=== PATIENT | female | born 1995 | race Caucasian/White ===

== ENCOUNTER 2018-01-03 13:04 | Emergency (ER) | payer BC, SELFPAY ==
[2018-01-03 13:05] VITALS: BP 118/63; PULSE 55; RESP 16; TEMP 35.7; O2SAT 98; BMI 21.9
--- NOTE | 2018-01-03 13:36 | CT_ITS ---
STUDY: CT CERVICAL SPINE WITHOUT CONTRAST REASON FOR EXAM: Female, 22 years old. FALL-HIT BACK OF HEAD/POS LOC RADIATION DOSAGE (If Supplied By Facility): CTDIvol = ( 18.82 ) mGy, DLP = ( 357.35 ) mGycm TECHNIQUE: High resolution transaxial imaging was performed without contrast material. Sagittal and coronal images were reconstructed. Individualized dose optimization techniques were used for this CT. COMPARISON: None FINDINGS: Normal craniovertebral junction. Normal anterior atlantoaxial articulation. Normal odontoid process. Normal cervical lordosis. Normal vertebral bodies and posterior osseous elements. C2-3: Normal endplates. Normal disc height and morphology. Normal central canal and intervertebral neuroforamina. C3-4: Normal endplates. Normal disc height and morphology. Normal central canal and intervertebral neuroforamina. C4-5: Normal endplates. Normal disc height and morphology. Normal central canal and intervertebral neuroforamina. C5-6: Normal endplates. Normal disc height and morphology. Normal central canal and intervertebral neuroforamina. C6-7: Normal endplates. Normal disc height and morphology. Normal central canal and intervertebral neuroforamina. C7-T1: Normal endplates. Normal disc height and morphology. Normal central canal and intervertebral neuroforamina. Normal visualized soft tissue structures. CT/Spine Cervical without Contras IMPRESSION: Normal unenhanced CT examination of the cervical spine. Electronically Signed: Chip Carter MD at 14:36 EDT Tel , Service support ,
--- NOTE | 2018-01-03 13:36 | CT_ITS ---
STUDY: CT BRAIN WITHOUT CONTRAST REASON FOR EXAM: Female, 22 years old. FALL/POS LOC. HIT BACK OF HEAD-PT SHIELDED. RADIATION DOSAGE (If Supplied By Facility): CTDIvol = ( 60.81 ) mGy, DLP = ( 1021.47 ) mGycm TECHNIQUE: Transaxial CT imaging of the brain was performed without administration of intravenous contrast material. Individualized dose optimization techniques were used for this CT. COMPARISON: None. FINDINGS: Normal soft tissue structures. Normal calvarium. Normal size ventricles and extra-axial spaces for the patient's age. Normal white matter tracts of the cerebral hemispheres. Normal basal ganglia and thalami. Normal brainstem. Normal cerebellum. There is no intracranial hemorrhage. There are no findings of an acute ischemic infarction. Normal visualized paranasal sinuses. CT/Brain/Head without Contrast IMPRESSION: Normal unenhanced CT scan of the brain. Electronically Signed: Chip Carter MD at 14:09 EDT Tel , Service support ,
--- NOTE | 2018-01-03 14:55 | ED.DCSUM_ITS ---
- ER Visit Summary Date of Service: 01/03/18 Chief Complaint: Fall History of Present Illness: The patient is a 22 F that slipped when ice- skating. She hit the back of her head. Brief LOC. Nausea. Reports posterior head pain and neck pain. No weakness or numbness. No blood thinner use. Physical Examination: Head and neck are atraumatic on inspection. HEENT exam unremarkable. Cranial nerves normal. Cervical spine diffusely tender to palpation. No focal or lateralizing neurologic abdomen is grossly. Test Results: CT head and neck unremarkable. Emergency Department Course and Treatment: Patient treated with Motrin. I suspect she has a concussion. She was given concussion information and will be discharged. Treatment Plan: As above Disposition: Discharged Impression: 1. Concussion with loss of consciousness This note was generated with [employer] dictation software. It may contain incorrect words, spelling, and punctuation that were not noted in review of the chart prior to signing ED Disposition - Plan for ED Patient: Chief Complaint: Head Injury Referrals: Rich Thomas MD [Primary Care Provider] -
--- NOTE | 2018-01-03 14:55 | ED.DEP ---
ED Disposition - Plan for ED Patient: Chief Complaint: Head Injury Instructions: ED Concussion Referrals: Rich Thomas MD [Primary Care Provider] -
[2018-01-03] MEDS: Ibuprofen 600 MG Tablet PO (15:07)
== END 2018-01-03 15:16 | disposition home or self-care (01) ==
PROVIDERS: Emergency Provider Emergency Medicine; Family Provider Family Medicine; PCP Family Medicine
DX: S06.0X9A Concussion with loss of consciousness of unspecified duration, initial encounter (principal); V00.211A Fall from ice-skates, initial encounter; Y93.21 Activity, ice skating; Y92.9 Unspecified place or not applicable; M54.2 Cervicalgia
CPT/HCPCS: 70450; 72125; 99283

== ENCOUNTER 2020-11-30 12:49 | Emergency (ER) | payer BC, SELFPAY ==
[2020-11-30 12:51] VITALS: BP 128/90; PULSE 59; RESP 14; TEMP 36.2; O2SAT 98; BMI 20.5
[2020-11-30 13:15] LABS: Absolute Lymphocyte Count 2.07 X10^3/uL (0.83-4.51); Basophil# 0.04 X10^3/uL; Basophil% 0.5 % (0-1); Eosinophil# 0.03 X10^3/uL; Eosinophils% 0.4 % (0-5); Hematocrit 41.2 % (37-47); Hemoglobin 14.1 g/dL (12.0-15.0); Lymphocyte # 2.07 X10^3/ul (0.83-4.51); Lymphocyte % 26.5 % (19-41); Mean Corp Hgb Conc 34.2 g/dL (32-36); Mean Corpuscular Hgb 29.6 pg (27.0-32.0); Mean Corpuscular Volume 86.6 fL (81-99); Mean Platelet Vol. 8.9 fl (6.2-12.0); Monocyte# 0.61 X10^3/uL; Monocyte% 7.8 % (0-10); NRBC Flagged by Analyzer 0 % (0-5); Neutrophil # 5.02 X10^3/uL (2.7-7.7); Neutrophil % 64.3 % (47-70); Platelet Count 244 K/mm3 (150-450); RBC Distribution Width CV 12.1 % (11.6-14.6); RBC Distribution Width SD 38.6 fl (35.1-43.9); Red Blood Count 4.76 M/mm3 (4.2-5.4); White Blood Count 7.8 K/mm3 (4.4-11.0)
--- NOTE | 2020-11-30 13:26 | EX.ED.DYSGE1 ---
HPI History of Present Illness Chief Complaint: Suicidal Informant: patient Narrative Narrative: Patient is a 25-year-old female with a past medical history of ADHD who presents to the emergency department for suicidal ideations. She states that she gets these fleeting thoughts. She was placed on Prozac over the past 2 weeks and feel like the thoughts have becoming more frequently. She never had a specific plan to harm herself. She states that she had some scissors on her hand last night and got the idea to cut herself which she has never had before. She states that she now understands why people would actually commit suicide. She feels like she has a lot to live for and does not know why she is having these thoughts. She states that even on the car ride into the emergency department with the police she was thinking that she would just go home and kill her self. Patient is smiling whenever she says that and seems to be confused as to why she is getting these thoughts. Patient denies any attempt on her life. She denies any thoughts of wanting to harm anybody else. She has no issues with drugs or alcohol. She does not have any physical complaints otherwise. [facility] Medical History (Updated 11/30/20 @ 15:[address] Jeyson Baker DO) ADHD Depression Home Medications fluoxetine [Prozac] 20 mg PO DAILY 11/30/20 [History Last Taken Unknown] lisdexamfetamine [Vyvanse] 30 mg PO DAILY 11/30/20 [History Last Taken Unknown] Allergy/AdvReac Type Severity Reaction Status Date / Time No Known Allergies Allergy Verified 11/30/20 12:51 Social History Smoking Status: Never smoker ROS ROS ED Constitutional Constitutional ED: Denies chills or fever(s) Eyes Eyes: Denies change in vision ENT ENT ED: Denies epistaxis or rhinorrhea Cardiovascular Cardiovascular: Denies chest pain or palpitations Respiratory/Chest Respiratory/Chest: Denies cough, dyspnea or dyspnea on exertion Gastrointestinal Gastrointestinal: Denies abdominal pain, diarrhea, nausea or vomiting Genitourinary Genitourinary ED: Denies dysuria, hematuria or urinary frequency Musculoskeletal Musculoskeletal: Denies back pain or neck pain Integumentary Denies rash Neurologic Neurologic: Denies dizziness, headache(s) or weakness EXAM Physical Exam Const Vital Signs: 11/30/20 12:51 Temperature 97.1 F L Temperature Source Temporal Pulse Rate 59 L Respiratory Rate 14 Blood Pressure 128/90 H Blood Pressure Mean 102 Pulse Ox 98 Oxygen Delivery Method Room Air Positive well nourished and well developed General Appearance ED: well developed and NAD HEENT Reports normocephalic, head/scalp atraumatic and moist mucous membranes Eyes PERRL and EOMs intact bilaterally Neck supple Resp normal respiratory effort and clear to auscultation bilaterally Auscultation: Negative for rales, rhonchi or wheezes Cardio regular rate, regular rhythm and no murmurs GI non-distended Extremity normal to inspection General Extremety ED: Negative for edema General Extremity: Negative for edema Neuro oriented x3, CN's II-XII intact bilaterally and no sensory deficits noted Sensorium / Orientation: alert Motor Exam: strength 5/5 throughout Psych mental status grossly normal Psych Narrative: Patient calm and cooperative with examination. Appearance: grossly normal Skin no rashes or lesions noted MDM MDM MDM Narrative Medical decision making narrative: Patient presents to the emergency department for suicidal ideations. She does not have any specific plan. She believes that this might be medication related as she is recently started on Prozac 2 weeks earlier. Upon arrival to the ED vital signs within normal limits. She is a benign exam. She is calm and cooperative with staff. Will check basic lab work and discuss with social work. Patient's lab work did not reveal a significant acute abnormality. Her urine drug screen was positive for amphetamines which is likely secondary to the Vyvanse. Crisis did come and evaluate the patient. They feel like with these thoughts that she will require inpatient acute care psychiatric stay. They believe it could potentially be medication related but she does need stabilized from this. Currently awaiting placement at this time. Lab Data Labs: Laboratory Results - last 24 hr 11/30/20 11/30/20 11/30/20 13:10 13:10 13:10 WBC 7.8 RBC 4.76 Hgb 14.1 Hct 41.2 MCV 86.6 MCH 29.6 MCHC 34.2 RDW Std Deviation 38.6 RDW Coeff of Julia 12.1 Plt Count 244 MPV 8.9 Immature Gran % (Auto) 0.500 Neut % (Auto) 64.3 Lymph % (Auto) 26.5 Josephine % (Auto) 7.8 Eos % (Auto) 0.4 Baso % (Auto) 0.5 Absolute Neuts (auto) 5.0 Absolute Lymphs (auto) 2.07 Nucleated RBC % 0 Sodium 131 L Potassium 3.2 L Chloride 99 Carbon Dioxide 23.0 Anion Gap 9 BUN 9 Creatinine 0.89 Estim Creat Clear Calc 91.55 Est GFR (MDRD) Af Amer 100 Est GFR (MDRD) Non-Af 82 BUN/Creatinine Ratio 10.1 Glucose 106 Calcium 8.6 Serum , Qual Urine Opiates Screen Urine Methadone Screen Ur Barbiturates Screen Ur Phencyclidine Scrn Ur Amphetamines Screen U Methamphetamin-MDMA U Benzodiazepines Scrn Urine Cocaine Screen U Cannabinoids Screen Ur Drug Screen Comment Ethyl Alcohol 8.0 11/30/20 11/30/20 13:10 13:30 WBC RBC Hgb Hct MCV MCH MCHC RDW Std Deviation RDW Coeff of Julia Plt Count MPV Immature Gran % (Auto) Neut % (Auto) Lymph % (Auto) Josephine % (Auto) Eos % (Auto) Baso % (Auto) Absolute Neuts (auto) Absolute Lymphs (auto) Nucleated RBC % Sodium Potassium Chloride Carbon Dioxide Anion Gap BUN Creatinine Estim Creat Clear Calc Est GFR (MDRD) Af Amer Est GFR (MDRD) Non-Af BUN/Creatinine Ratio Glucose Calcium Serum , Qual NEGATIVE Urine Opiates Screen NEGATIVE Urine Methadone Screen NEGATIVE Ur Barbiturates Screen NEGATIVE Ur Phencyclidine Scrn NEGATIVE Ur Amphetamines Screen POSITIVE H U Methamphetamin-MDMA NEGATIVE U Benzodiazepines Scrn NEGATIVE Urine Cocaine Screen NEGATIVE U Cannabinoids Screen NEGATIVE Ur Drug Screen Comment Ethyl Alcohol Discharge Plan Triage Chief Complaint: Suicidal ED Provider: Jeyson Baker Dx/Rx/DC Orders Clinical Impression: Suicidal ideation Prescriptions: No Action fluoxetine [Prozac] 20 mg Capsule 20 mg PO DAILY RF: 0 Vyvanse 30 mg Capsule 30 mg PO DAILY RF: 0 Primary Care Provider: Rich Thomas Referrals: Rich Thomas MD [Primary Care Provider] - Disposition Disposition: Psychiatric Hospital or Unit
[2020-11-30 13:29] LABS: Anion Gap 9 (5-15); BUN 9 mg/dL (7-18); BUN/Creat Ratio 10.1 RATIO (10-20); Calcium,Total 8.6 mg/dL (8.5-10.1); Chloride 99 mmol/L (98-107); Creatinine, Serum 0.89 mg/dL (0.55-1.02); EST Glomerular Filtration Rate 82 mL/min (>60); Est Glom Filt Rate - Afr Amer 100 mL/min (>60); Estimated Creatinine Clearance 91.55 ml/min; Glucose 106 mg/dL (74-106); Potassium 3.2 mmol/L (3.5-5.1); Sodium Level 131 mmol/L (136-145)
[2020-11-30 13:42] LABS: Internal QC Validated? YES +Cl - CLEAR BKGD; Pregnancy, Serum, hCG Quali. NEGATIVE Negative
[2020-11-30 13:47] LABS: Amphetamine Urine VISTA POSITIVE (<1000 ng/mL); Barbiturate Urine VISTA NEGATIVE (< 200 ng/mL); Benzodiazepine Urine VISTA NEGATIVE (< 200 ng/mL); Cocaine Urine VISTA NEGATIVE (< 300 ng/mL); Ecstacy Urine VISTA NEGATIVE (< 500 ng/mL); Methadone Urine VISTA NEGATIVE (< 300 ng/mL); PCP Urine VISTA NEGATIVE (< 25 ng/mL); THC Urine VISTA NEGATIVE (< 50 ng/mL); Vista UDS pH Range 6
[2020-11-30 16:25] VITALS: BP 125/83; PULSE 58; RESP 16; TEMP 36.2; O2SAT 100
--- NOTE | 2020-11-30 16:28 | NURSING ---
PER JOVANNI WITH CRISIS; PT HAS BEEN REFERRED TO [facility]
--- NOTE | 2020-11-30 18:00 | CM.ED ---
ARSLAN Note ARSLAN received a phone call from Thelma Laurent at [facility]. She said that patient was accepted at [facility]. Accepting MD is Dr. Forman. She will be in the [facility]. RN to RN [phone]. SW updated patient and patient's mother that patient accepted at [facility]. ARSLAN provided them with pamphlet from [facility]. Plan: [facility] Thelma TRAORE
== END 2020-11-30 18:30 ==
PROVIDERS: Emergency Provider Emergency Medicine; PCP Family Medicine
DX: F32.9 Major depressive disorder, single episode, unspecified (principal); R45.851 Suicidal ideations; F90.9 Attention-deficit hyperactivity disorder, unspecified type; Z79.899 Other long term (current) drug therapy
CPT/HCPCS: 36415; 80048; 80307; 82077; 84703; 85025; 87426; 99285

== ENCOUNTER 2021-02-03 10:57 | Emergency (ER) | payer BC, SELFPAY ==
[2021-02-03] VITALS (10 sets, daily range): BP systolic 113–131; BP diastolic 76–90; PULSE 71–82; RESP 12–18; TEMP 36.5; O2SAT 97–99; BMI 20.4
[2021-02-03 11:37] LABS: Absolute Lymphocyte Count 1.48 X10^3/uL (0.83-4.51); Absolute Neutrophil Count 3.7 X10^3/uL (2.0-7.7); Basophil# 0.04 X10^3/uL; Basophil% 0.7 % (0-1); Eosinophil# 0.04 X10^3/uL; Eosinophils% 0.7 % (0-5); Hematocrit 42.8 % (37-47); Hemoglobin 14.2 g/dL (12.0-15.0); Lymphocyte # 1.48 X10^3/ul (0.83-4.51); Lymphocyte % 25.8 % (19-41); Mean Corp Hgb Conc 33.2 g/dL (32-36); Mean Corpuscular Hgb 29.8 pg (27.0-32.0); Mean Corpuscular Volume 89.7 fL (81-99); Monocyte# 0.41 X10^3/uL; Monocyte% 7.2 % (0-10); NRBC Flagged by Analyzer 0 % (0-5); Neutrophil # 3.73 X10^3/uL (2.7-7.7); Neutrophil % 65.1 % (47-70); Platelet Count 225 K/mm3 (150-450); RBC Distribution Width CV 11.9 % (11.6-14.6); Red Blood Count 4.77 M/mm3 (4.2-5.4); White Blood Count 5.7 K/mm3 (4.4-11.0)
[2021-02-03 11:45] LABS: Internal QC Validated? YES +Cl - CLEAR BKGD; Pregnancy, Serum, hCG Quali. NEGATIVE Negative
[2021-02-03 11:50] LABS: Anion Gap 5 (5-15); BUN 9 mg/dL (7-18); BUN/Creat Ratio 11.2 RATIO (10-20); Calcium,Total 8.8 mg/dL (8.5-10.1); Chloride 105 mmol/L (98-107); EST Glomerular Filtration Rate 93 mL/min (>60); Est Glom Filt Rate - Afr Amer 112 mL/min (>60); Estimated Creatinine Clearance 101.17 ml/min; Glucose 89 mg/dL (74-106); Potassium 3.4 mmol/L (3.5-5.1); Sodium Level 136 mmol/L (136-145)
[2021-02-03 12:12] LABS: Alcohol, Blood (Medical)-Serum < 3.0 mg/dL
[2021-02-03 12:26] LABS: Amphetamine Urine VISTA POSITIVE (<1000 ng/mL); Barbiturate Urine VISTA NEGATIVE (< 200 ng/mL); Benzodiazepine Urine VISTA NEGATIVE (< 200 ng/mL); Cocaine Urine VISTA NEGATIVE (< 300 ng/mL); Ecstacy Urine VISTA NEGATIVE (< 500 ng/mL); Methadone Urine VISTA NEGATIVE (< 300 ng/mL); PCP Urine VISTA NEGATIVE (< 25 ng/mL); THC Urine VISTA NEGATIVE (< 50 ng/mL); Vista UDS pH Range 5
--- NOTE | 2021-02-03 13:02 | EDS_ITS ---
HPI History of Present Illness Chief Complaint: Suicidal Informant: patient Narrative Narrative: Presenting with increasing suicidal ideation since yesterday. History of anxiety and depression along with ADHD on Vyvanse. States approximate 3 months ago was placed on Prozac per her request. She states she had increasing depression and was hospitalized at [facility] 2 months ago for 10 days. Reports her Prozac was weaned down to 10 mg daily, by her PCP recently down to 5 mg daily. 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 Currently lives with her parents, she does not currently go to school or work. Yesterday reported parents found out information on [employer] [place], for which they did not like in reported saw her kissing another girl and had other comments. They forced her to delete these for which she did. They forced her to throw away her [employer] cards for which she did. She states yesterday increasing thoughts of self-harm. She states she has a nail and thought about carving her arm. She has not hurt herself in the past. Today increasing thoughts and brought herself to the emergency room to be evaluated. She currently sees a therapist weekly. She states there is appointment for her to see a psychiatrist. Occasional social alcohol. Denies recreational drug use. Prior similar symptoms: Yes PFSH PFSH Medical History ADHD Depression Home Medications fluoxetine [Prozac] 5 mg PO DAILY 11/30/20 [History Last Taken Unknown] lisdexamfetamine [Vyvanse] 30 mg PO DAILY 11/30/20 [History Last Taken Unknown] Allergy/AdvReac Type Severity Reaction Status Date / Time No Known Allergies Allergy Verified 11/30/20 12:51 Social History Smoking Status: Never smoker ROS ROS ED Constitutional Constitutional ED: Denies chills, fever(s) or sweats Eyes Eyes: Denies change in vision ENT ENT ED: Denies dysphagia or sore throat Cardiovascular Cardiovascular: Denies chest pain, leg edema, palpitations or racing heartbeat Respiratory/Chest Respiratory/Chest: Denies cough, dyspnea or dyspnea on exertion Gastrointestinal Gastrointestinal: Denies abdominal pain, diarrhea, nausea or vomiting Genitourinary Genitourinary ED: Denies dysuria, hematuria or urinary frequency Musculoskeletal Musculoskeletal: Denies back pain, extremity pain or neck pain Integumentary Denies rash or wounds Neurologic Neurologic: Denies headache(s), paresthesias or weakness Psychiatric Psychiatric: Reports suicidal ideation and suicidal thoughts EXAM Physical Exam Const Vital Signs: 02/03/21 10:58 02/03/21 12:48 02/03/21 14:37 Temperature 97.7 F L Temperature Source Temporal Pulse Rate 72 82 Respiratory Rate 18 16 14 Blood Pressure 131/90 H 127/83 H Blood Pressure Mean 103 97 Pulse Ox 98 97 Oxygen Delivery Method Room Air Room Air Positive well nourished and well developed General Appearance ED: well developed and NAD HEENT Reports moist mucous membranes normocephalic and atraumatic Eyes PERRL, EOMs intact bilaterally and conjunctivae normal General Eye ED: Yes normal appearance of both eyes Neck no lymphadenopathy and supple General: Negative for tenderness Chest Wall Chest: Negative for tenderness Resp normal respiratory effort and normal air movement Effort and Inspection: symmetric chest movement; Negative for respiratory distress Cardio regular rate, regular rhythm and no murmurs Peripheral Pulses: pulses 2+ throughout GI normal to inspection, nondistended, normoactive bowel sounds and non-tender Palpation: Negative for guarding or rebound tenderness present Back/Spine no CVA tenderness and no thoracic nor lumbar tenderness Extremity normal to inspection General Extremety ED: Negative for edema or tenderness General Extremity: Negative for edema Neuro oriented x3 and no sensory deficits noted Sensorium / Orientation: awake and alert Psych Psych Narrative: Appropriate answering questions. Does admit to suicidal ideations. Skin no rashes or lesions noted and no wounds MDM MDM MDM Narrative Medical decision making narrative: Patient cooperative admits to depression history and suicidal thoughts with plans. Medical clearance labs obtain normal. Tox with amphetamines however she is on Vyvanse. Clinically stable. Medically cleared. She is evaluated by mental health counselor agrees that she will need inpatient management. She reported to them that she had plans of self hanging. Patient currently being evaluated for placement. Lab Data Attestation: I reviewed the patient's lab results. Labs: Laboratory Results - last 24 hr 02/03/21 02/03/21 02/03/21 00:25 00:25 00:25 WBC 5.7 RBC 4.77 Hgb 14.2 Hct 42.8 MCV 89.7 MCH 29.8 MCHC 33.2 RDW Std Deviation 39.0 RDW Coeff of Julia 11.9 Plt Count 225 MPV 9.0 Immature Gran % (Auto) 0.500 Neut % (Auto) 65.1 Lymph % (Auto) 25.8 Haakon % (Auto) 7.2 Eos % (Auto) 0.7 Baso % (Auto) 0.7 Absolute Neuts (auto) 3.7 Absolute Lymphs (auto) 1.48 Nucleated RBC % 0 Sodium 136 Potassium 3.4 L Chloride 105 Carbon Dioxide 26.0 Anion Gap 5 BUN 9 Creatinine 0.80 Estim Creat Clear Calc 101.17 Est GFR (MDRD) Af Amer 112 Est GFR (MDRD) Non-Af 93 BUN/Creatinine Ratio 11.2 Glucose 89 Calcium 8.8 Serum , Qual Urine Opiates Screen Urine Methadone Screen Ur Barbiturates Screen Ur Phencyclidine Scrn Ur Amphetamines Screen U Methamphetamin-MDMA U Benzodiazepines Scrn Urine Cocaine Screen U Cannabinoids Screen Ur Drug Screen Comment Ethyl Alcohol < 3.0 02/03/21 02/03/21 00:25 12:05 WBC RBC Hgb Hct MCV MCH MCHC RDW Std Deviation RDW Coeff of Julia Plt Count MPV Immature Gran % (Auto) Neut % (Auto) Lymph % (Auto) Haakon % (Auto) Eos % (Auto) Baso % (Auto) Absolute Neuts (auto) Absolute Lymphs (auto) Nucleated RBC % Sodium Potassium Chloride Carbon Dioxide Anion Gap BUN Creatinine Estim Creat Clear Calc Est GFR (MDRD) Af Amer Est GFR (MDRD) Non-Af BUN/Creatinine Ratio Glucose Calcium Serum , Qual NEGATIVE Urine Opiates Screen NEGATIVE Urine Methadone Screen NEGATIVE Ur Barbiturates Screen NEGATIVE Ur Phencyclidine Scrn NEGATIVE Ur Amphetamines Screen POSITIVE H U Methamphetamin-MDMA NEGATIVE U Benzodiazepines Scrn NEGATIVE Urine Cocaine Screen NEGATIVE U Cannabinoids Screen NEGATIVE Ur Drug Screen Comment Ethyl Alcohol EKG Initial EKG: Attestation: I personally reviewed and interpreted this EKG as follows: Comments: Sinus rate of 54, no ST or T wave changes. QTc 419. Discharge Plan Triage Chief Complaint: Suicidal ED Provider: Rito Morfin Dx/Rx/DC Orders Clinical Impression: Suicidal ideation, History of depression Prescriptions: No Action fluoxetine [Prozac] 20 mg Capsule 5 mg PO DAILY RF: 0 Vyvanse 30 mg Capsule 30 mg PO DAILY RF: 0 Primary Care Provider: Rich Thomas Referrals: Rich Thomas MD [Primary Care Provider] -
--- NOTE | 2021-02-03 15:30 | EKG12_ITS ---
Test Reason : Blood Pressure : / mmHG Vent. Rate : 054 BPM Atrial Rate : 054 BPM P-R Int : 104 ms QRS Dur : 090 ms QT Int : 442 ms P-R-T Axes : 031 063 050 degrees QTc Int : 419 ms Sinus bradycardia with short [place] Otherwise normal ECG Confirmed by GARCIA ZUNIGA, SARAN ([id number]), manager editorial YOKASTA REYES ([id number]) on 02/05/2021 9:17:23 AM Referred By: ANGEL Confirmed By:SARAN ZELAYA MD
--- NOTE | 2021-02-03 21:34 | ED.RN ---
JENNIFER CALLED REQUESTING ADDITIONAL INFORMATION. INFORMATION GIVEN AT THIS TIME THEY WILL BE PAGING THEIR DOCTOR AT THIS TIME
== END 2021-02-03 23:19 ==
LOC: ED 12:16
PROVIDERS: Emergency Provider Emergency Medicine; PCP Family Medicine
DX: R45.851 Suicidal ideations (principal); F32.9 Major depressive disorder, single episode, unspecified; F41.9 Anxiety disorder, unspecified; F90.9 Attention-deficit hyperactivity disorder, unspecified type; Z79.899 Other long term (current) drug therapy
CPT/HCPCS: 80048; 80307; 82077; 84703; 85025; 87426; 93005; 99285